=== PATIENT | female | born 1980 | race Caucasian/White ===

== ENCOUNTER 2024-06-07 09:47 | Day surgery (SDC) | payer OTHER ==
[~2024-06-07] VITALS: Ht 165.1 cm; Wt 49.4 kg
[2024-06-07] MEDS: LR 1,000 ML IV SCH (11:02)
[2024-06-07] MEDS ORDERED: LIDOCAINE 2% 100MG/5ML SDV (FOR ANES.) As Ordered ONE (12:02)
[2024-06-07] MEDS ORDERED: SUGAMMADEX SODIUM 500 MG/5 ML VIAL (BRIDION) As Ordered ONE (12:02)
[2024-06-07] MEDS ORDERED: ROCURONIUM BROMIDE 50MG/5ML VIAL As Ordered ONE (12:02)
[2024-06-07] MEDS ORDERED: ONDANSETRON 4MG 2ML VIAL As Ordered ONE (12:02)
[2024-06-07] MEDS ORDERED: propofoL 200 MG/20 ML VIAL As Ordered ONE (12:02)
[2024-06-07] MEDS ORDERED: fentaNYL 100 MCG/2 ML INJECTION As Ordered ONE (12:09)
[2024-06-07] MEDS ORDERED: MIDAZOLAM INJ 2MG/2ML VIAL As Ordered ONE (12:09)
[2024-06-07] MEDS: OXYMETAZOLINE 0.05% NASAL SPRAY As Ordered ONE (13:12)
[2024-06-07] MEDS: AMPICILLIN SOD/SULBACTAM SOD 3 GM in D5W MINI-BAG 100 ML IV ONE (13:12)
[2024-06-07] MEDS ORDERED: ACETAMINOPHEN 1000MG/100ML IV BAG As Ordered ONE (13:17)
[2024-06-07] MEDS: CHLORHEXIDINE GLUCONATE 0.12 % 15ML UDC (PERIDEX ORAL RINSE) As Ordered ONE (13:32)
[2024-06-07] MEDS: LIDOCAINE 2% W/ EPINEPHRINE 1.7 ML DENTAL INJ As Ordered ONE (13:35)
[2024-06-07] MEDS: BUPivacaine LIPOSOME/PF 266MG 20ML VIAL (13.3MG/ML)(EXPAREL) As Ordered ONE (14:21)
[2024-06-07] MEDS ORDERED: METOCLOPRAMIDE INJ 10MG/2ML VIAL IV PRN (14:25)
[2024-06-07] MEDS ORDERED: LR 1,000 ML IV SCH (14:25)
[2024-06-07] MEDS ORDERED: oxyCODONE 5MG TAB PO PRN (14:25)
[2024-06-07] MEDS ORDERED: fentaNYL 100 MCG/2 ML INJECTION IV PRN (14:25)
[2024-06-07] MEDS: HYDROMORPHONE HCL 0.5 MG/ 0.5 ML SYRINGE IV PRN (14:53)
[2024-06-07] MEDS: ONDANSETRON 4MG 2ML VIAL IV PRN (14:53)
[2024-06-07 15:25] VITALS: BP 122/77; TEMP 97.8; O2SAT 98
== END 2024-06-07 15:46 | disposition home or self-care (01) ==
LOC: M SDC 09:47
PROVIDERS: ATTEND Dentist
DX: K02.9 Dental caries, unspecified (principal); F41.9 Anxiety disorder, unspecified; F17.210 Nicotine dependence, cigarettes, uncomplicated
CPT/HCPCS: 88300; D7140; D7210; D9223; J0131; J0295; J0666; J1100; J1171; J2250; J2405; J3010